=== PATIENT | female | born 1990 | race Caucasian/White ===

== ENCOUNTER → 2019-01-14 15:14 | Observation (INO) ==
[2019-01-14 13:31] LABS: Basophils # 0.1 K/mcL (0.0-0.2); Basophils % 0.6 %; Eosinophils # 0.1 K/mcL (0.0-0.6); Eosinophils % 0.7 %; Hematocrit 34.9 % (35.3-44.9); Hemoglobin 12.6 g/dL (11.5-15.4); Immature Granulocytes % 1.1 % (0-4); Lymphocytes # 1.5 K/mcL (0.6-4.6); Lymphocytes % 16.9 %; Mean Corpuscular HGB Conc 36.1 g/dL (31.6-35.5); Mean Corpuscular Hemoglobin 31.3 pg (28.0-33.3); Mean Corpuscular Volume 86.6 fL (83.0-100.0); Mean Platelet Volume 10.7 fL (9.4-12.4); Monocytes # 0.7 K/mcL (0.0-1.3); Monocytes % 7.5 %; Neutrophils # 6.5 K/mcL (1.6-8.9); Platelet Count 257 K/mcL (140-400); Red Blood Count 4.03 M/mcL (3.82-4.97); Red Cell Distribution Width 12.2 % (11.5-14.5); Segmented Neutrophils % 73.2 %; White Blood Count 8.9 K/mcL (4.3-11.1)
[2019-01-14 13:34] LABS: Bilirubin,Urine Small (Negative); Blood,Urine Negative (Negative); Clarity,Urine Cloudy (Clear); Color,Urine Dark Yellow (Yellow); Glucose,Urine (UA) Normal (Normal); Ketones,Urine Negative (Negative); Leukocyte Esterase,Urine Moderate (Negative); Nitrite,Urine Negative (Negative); Protein,Urine Trace mg/dL (Neg-Trace); Specific Gravity,Urine > 1.030 (1.010-1.025); Urobilinogen,Urine Normal (Normal)
[2019-01-14 13:35] LABS: Amphetamine Screen,Urine Negative ng/mL (Cutoff=1000); Barbiturate Screen,Urine Negative ng/mL (Cutoff=200); Benzodiazepines Screen,Urine Negative ng/mL (Cutoff=200); Cannabinoid Screen,Urine Negative ng/mL (Cutoff = 50); Cocaine Screen,Urine Negative ng/mL (Cutoff= 300); Creatinine,Urine 280 mg/dL; Opiate Screen,Urine Negative ng/mL (Cutoff=300); Phencyclidine Screen,Urine Negative ng/mL (Cutoff=25); Protein/Creatinine Ratio,Urine 0.14 mg/mg (0.00-0.20)
[2019-01-14 13:38] LABS: Bacteria,Urine Moderate per hpf (None-Few); Hyaline Casts,Urine Few per lpf (None-Few); RBC,Urine 0-3 per hpf (0-3); Squamous Epithelial Cell,Urine Many per lpf (None-Few); WBC,Urine 15-30 per hpf (0-3)
[2019-01-14 13:45] LABS: Alanine Aminotransferase 16 Units/L (7-52); Aspartate Amino Transferase 16 Units/L (13-39); BUN/Creatinine Ratio 16 (6-26); Blood Urea Nitrogen 8 mg/dL (6-20); Lactate Dehydrogenase 118 Units/L (140-271); Uric Acid 4.2 mg/dL (2.3-7.6); eGFR For African Americans > 60 (> 60); eGFR For Non-African Americans > 60 (> 60)
[2019-01-14 14:01] LABS: Calcium Oxalate Crystals,Urine Present
== END | disposition home or self-care (01) ==
LOC: 1NENULAB
PROVIDERS: ADMIT Advanced Practice Midwife; ATTEND Advanced Practice Midwife

== ENCOUNTER → 2019-02-27 19:55 | Observation (INO) ==
[2019-02-27 18:49] LABS: Bilirubin,Urine Negative (Negative); Blood,Urine Negative (Negative); Clarity,Urine Cloudy (Clear); Color,Urine Yellow (Yellow); Glucose,Urine (UA) Normal (Normal); Ketones,Urine Negative (Negative); Leukocyte Esterase,Urine Trace (Negative); Nitrite,Urine Negative (Negative); Protein,Urine Negative (Neg-Trace); Specific Gravity,Urine 1.018 (1.010-1.025); Urobilinogen,Urine Normal (Normal)
[2019-02-27 18:51] LABS: Hyaline Casts,Urine None Seen per lpf (None-Few); Squamous Epithelial Cell,Urine Many per lpf (None-Few); WBC,Urine 0-3 per hpf (0-3)
[2019-02-27 19:02] LABS: Bacteria,Urine Moderate per hpf (None-Few); Mucus,Urine Many per lpf (Few)
[2019-02-27 19:08] LABS: Amphetamine Screen,Urine Negative ng/mL (Cutoff=1000); Barbiturate Screen,Urine Negative ng/mL (Cutoff=200); Benzodiazepines Screen,Urine Negative ng/mL (Cutoff=200); Cannabinoid Screen,Urine Negative ng/mL (Cutoff = 50); Cocaine Screen,Urine Negative ng/mL (Cutoff= 300); Opiate Screen,Urine Negative ng/mL (Cutoff=300); Phencyclidine Screen,Urine Negative ng/mL (Cutoff=25)
== END | disposition home or self-care (01) ==
LOC: 1NENULAB
PROVIDERS: ADMIT Advanced Practice Midwife; ATTEND Advanced Practice Midwife

== ENCOUNTER → 2019-03-21 21:04 | Observation (INO) ==
[2019-03-21 20:47] LABS: Bilirubin,Urine Negative (Negative); Blood,Urine Negative (Negative); Clarity,Urine Clear (Clear); Color,Urine Yellow (Yellow); Glucose,Urine (UA) Normal (Normal); Ketones,Urine Negative (Negative); Leukocyte Esterase,Urine Small (Negative); Nitrite,Urine Negative (Negative); Protein,Urine Negative (Neg-Trace); Specific Gravity,Urine 1.008 (1.010-1.025); Urobilinogen,Urine Normal (Normal)
[2019-03-21 20:49] LABS: Bacteria,Urine Few per hpf (None-Few); Hyaline Casts,Urine None Seen per lpf (None-Few); RBC,Urine 0-3 per hpf (0-3); Squamous Epithelial Cell,Urine Many per lpf (None-Few); WBC,Urine 0-3 per hpf (0-3)
[~2019-03-21 21:04] MED LIST: FLU Vac QV 19-20 (6Month+)/PF 0.5 ML SYRINGE IM ONE
[2019-03-21 21:09] LABS: Amphetamine Screen,Urine Negative ng/mL (Cutoff=1000); Barbiturate Screen,Urine Negative ng/mL (Cutoff=200); Benzodiazepines Screen,Urine Negative ng/mL (Cutoff=200); Cannabinoid Screen,Urine Negative ng/mL (Cutoff = 50); Cocaine Screen,Urine Negative ng/mL (Cutoff= 300); Opiate Screen,Urine Negative ng/mL (Cutoff=300); Phencyclidine Screen,Urine Negative ng/mL (Cutoff=25)
[2019-03-21 21:48] LABS: Candida DNA DETECTED (Not Detect); Gardnerella DNA Not Detected (Not Detect); Trichomonas DNA Not Detected (Not Detect)
== END | disposition home or self-care (01) ==
LOC: 1NENULAB
PROVIDERS: ADMIT Advanced Practice Midwife; ATTEND Advanced Practice Midwife

== ENCOUNTER 2019-04-13 21:11 | Observation (INO) ==
[2019-04-13 19:37] LABS: Basophils # 0.1 K/mcL (0.0-0.2); Basophils % 0.5 %; Eosinophils # 0.1 K/mcL (0.0-0.6); Eosinophils % 0.7 %; Immature Granulocytes % 0.8 % (0-4); Lymphocytes # 1.7 K/mcL (0.6-4.6); Lymphocytes % 18.4 %; Mean Corpuscular HGB Conc 34.3 g/dL (31.6-35.5); Mean Corpuscular Hemoglobin 29.6 pg (28.0-33.3); Mean Corpuscular Volume 86.2 fL (83.0-100.0); Mean Platelet Volume 10.7 fL (9.4-12.4); Monocytes % 10.7 %; Neutrophils # 6.4 K/mcL (1.6-8.9); Platelet Count 283 K/mcL (140-400); Red Blood Count 4.06 M/mcL (3.82-4.97); Red Cell Distribution Width 11.7 % (11.5-14.5); Segmented Neutrophils % 68.9 %; White Blood Count 9.2 K/mcL (4.3-11.1)
[2019-04-13 19:57] LABS: Alanine Aminotransferase 14 Units/L (7-52); Albumin 3.2 g/dL (3.5-5.7); Albumin/Globulin Ratio 1.2 (1.1-2.2); Alkaline Phosphatase 99 Units/L (34-104); Aspartate Amino Transferase 15 Units/L (13-39); BUN/Creatinine Ratio 16 (6-26); Bilirubin,Total 0.3 mg/dL (0.3-1.0); Blood Urea Nitrogen 8 mg/dL (6-20); Calcium 8.7 mg/dL (8.6-10.3); Carbon Dioxide 19 mEq/L (23-29); Chloride 105 mEq/L (98-107); Globulin 2.7 g/dL (2.4-3.5); Glucose 86 mg/dL (70-105); Magnesium 1.6 mg/dL (1.6-2.6); Osmolality,Calculated 276 (280-300); Potassium 4.2 mEq/L (3.5-5.1); Sodium 134 mEq/L (136-145); Total Protein 5.9 g/dL (6.4-8.9); eGFR For African Americans > 60 (> 60); eGFR For Non-African Americans > 60 (> 60)
[2019-04-13 20:12] LABS: Amphetamine Screen,Urine Negative ng/mL (Cutoff=1000); Barbiturate Screen,Urine Negative ng/mL (Cutoff=200); Benzodiazepines Screen,Urine Negative ng/mL (Cutoff=200); Cannabinoid Screen,Urine Negative ng/mL (Cutoff = 50); Cocaine Screen,Urine Negative ng/mL (Cutoff= 300); Opiate Screen,Urine Negative ng/mL (Cutoff=300); Phencyclidine Screen,Urine Negative ng/mL (Cutoff=25)
[~2019-04-13 21:11] MED LIST changes: -FLU Vac QV 19-20 (6Month+)/PF 0.5 ML SYRINGE IM ONE; +Ringers Solution, Lactated 1,000 ML IVC ONE; +Ringers Solution, Lactated 1,000 ML IVC SCH; +Ringers Solution, Lactated 1,000 ML ONE
[2019-04-13 22:41] LABS: Bilirubin,Urine Negative (Negative); Blood,Urine Negative (Negative); Clarity,Urine Clear (Clear); Color,Urine Yellow (Yellow); Glucose,Urine (UA) Normal (Normal); Ketones,Urine Negative (Negative); Leukocyte Esterase,Urine Negative (Negative); Nitrite,Urine Negative (Negative); Protein,Urine Negative (Neg-Trace); Specific Gravity,Urine 1.005 (1.010-1.025); Urobilinogen,Urine Normal (Normal)
[2019-04-14] MEDS: Acetaminophen 325 MG TABLET PO PRN ×2 (04:04→11:52)
[2019-04-14] MEDS: Ringers Solution, Lactated 1,000 ML IVC SCH ×2 (08:26→08:41)
[2019-04-14 12:32] VITALS: BP 116/81
== END 2019-04-14 13:45 | disposition home or self-care (01) ==
LOC: 1NENULAB → 1NENUOBS 21:11
PROVIDERS: ADMIT Advanced Practice Midwife; ATTEND Advanced Practice Midwife

== ENCOUNTER → 2019-04-25 20:40 | Observation (INO) ==
[2019-04-25 18:33] LABS: Protein/Creatinine Ratio,Urine 0.14 mg/mg (0.00-0.20)
[2019-04-25 18:40] LABS: Bilirubin,Urine Negative (Negative); Blood,Urine Negative (Negative); Clarity,Urine Cloudy (Clear); Color,Urine Yellow (Yellow); Glucose,Urine (UA) Normal (Normal); Ketones,Urine Negative (Negative); Leukocyte Esterase,Urine Negative (Negative); Nitrite,Urine Negative (Negative); PH,Urine 6.5 pH Units (5.0-8.0); Protein,Urine Negative (Neg-Trace); Specific Gravity,Urine 1.026 (1.010-1.025); Urobilinogen,Urine Normal (Normal)
[2019-04-25 18:42] LABS: Squamous Epithelial Cell,Urine Many per lpf (None-Few)
[2019-04-25 18:55] LABS: Bacteria,Urine Moderate per hpf (None-Few); Calcium Oxalate Crystals,Urine Present; RBC,Urine 0-3 per hpf (0-3)
[2019-04-25 19:17] LABS: Basophils # 0.1 K/mcL (0.0-0.2); Basophils % 0.5 %; Eosinophils # 0.1 K/mcL (0.0-0.6); Eosinophils % 0.8 %; Hematocrit 34.5 % (35.3-44.9); Hemoglobin 11.7 g/dL (11.5-15.4); Lymphocytes # 1.4 K/mcL (0.6-4.6); Lymphocytes % 15.4 %; Mean Corpuscular HGB Conc 33.9 g/dL (31.6-35.5); Mean Corpuscular Hemoglobin 29.4 pg (28.0-33.3); Mean Corpuscular Volume 86.7 fL (83.0-100.0); Mean Platelet Volume 10.5 fL (9.4-12.4); Monocytes # 1.1 K/mcL (0.0-1.3); Monocytes % 12.2 %; Neutrophils # 6.5 K/mcL (1.6-8.9); Platelet Count 273 K/mcL (140-400); Red Blood Count 3.98 M/mcL (3.82-4.97); Red Cell Distribution Width 11.9 % (11.5-14.5); Segmented Neutrophils % 70.1 %; White Blood Count 9.2 K/mcL (4.3-11.1)
[2019-04-25 19:36] LABS: Alanine Aminotransferase 12 Units/L (7-52); Aspartate Amino Transferase 15 Units/L (13-39); BUN/Creatinine Ratio 17 (6-26); Blood Urea Nitrogen 7 mg/dL (6-20); Lactate Dehydrogenase 118 Units/L (140-271); Uric Acid 3.6 mg/dL (2.3-7.6); eGFR For African Americans > 60 (> 60); eGFR For Non-African Americans > 60 (> 60)
== END | disposition home or self-care (01) ==
LOC: 1NENULAB
PROVIDERS: ADMIT Registered Nurse; ATTEND Registered Nurse

== ENCOUNTER → 2019-04-30 13:40 | Observation (INO) ==
[~2019-04-30 13:40] MED LIST changes: +Ondansetron ODT 4 MG TAB.RAPDIS SL PRN; -Ringers Solution, Lactated 1,000 ML IVC ONE; -Ringers Solution, Lactated 1,000 ML IVC SCH; -Ringers Solution, Lactated 1,000 ML ONE
== END | disposition home or self-care (01) ==
LOC: 1NENULAB
PROVIDERS: ADMIT Advanced Practice Midwife; ATTEND Advanced Practice Midwife

== ENCOUNTER → 2019-05-10 19:18 | Observation (INO) ==
[2019-05-10 17:40] LABS: Basophils % 0.3 %; Eosinophils % 0.4 %; Hematocrit 35.4 % (35.3-44.9); Hemoglobin 11.7 g/dL (11.5-15.4); Immature Granulocytes % 0.5 % (0-4); Lymphocytes # 1.9 K/mcL (0.6-4.6); Lymphocytes % 19.6 %; Mean Corpuscular HGB Conc 33.1 g/dL (31.6-35.5); Mean Corpuscular Hemoglobin 28.1 pg (28.0-33.3); Mean Corpuscular Volume 85.1 fL (83.0-100.0); Mean Platelet Volume 11.3 fL (9.4-12.4); Monocytes # 1.2 K/mcL (0.0-1.3); Monocytes % 11.6 %; Neutrophils # 6.7 K/mcL (1.6-8.9); Platelet Count 259 K/mcL (140-400); Red Blood Count 4.16 M/mcL (3.82-4.97); Red Cell Distribution Width 12.3 % (11.5-14.5); Segmented Neutrophils % 67.6 %; White Blood Count 9.9 K/mcL (4.3-11.1)
[2019-05-10 17:48] LABS: Protein/Creatinine Ratio,Urine 0.18 mg/mg (0.00-0.20)
[2019-05-10 18:03] LABS: Alanine Aminotransferase 16 Units/L (7-52); Aspartate Amino Transferase 16 Units/L (13-39); BUN/Creatinine Ratio 18 (6-26); Blood Urea Nitrogen 8 mg/dL (6-20); Lactate Dehydrogenase 120 Units/L (140-271); Uric Acid 4.1 mg/dL (2.3-7.6); eGFR For African Americans > 60 (> 60); eGFR For Non-African Americans > 60 (> 60)
[~2019-05-10 19:18] MED LIST changes: -Ondansetron ODT 4 MG TAB.RAPDIS SL PRN; +Prochlorperazine 10 MG/2 ML VIAL IVP PRN
== END | disposition home or self-care (01) ==
LOC: 1NENULAB
PROVIDERS: ADMIT Obstetrics & Gynecology; ATTEND Obstetrics & Gynecology

== ENCOUNTER → 2019-05-12 16:55 | Observation (INO) ==
[2019-05-12 14:42] LABS: Bilirubin,Urine Small (Negative); Blood,Urine Trace (Negative); Clarity,Urine Cloudy (Clear); Color,Urine Dark Yellow (Yellow); Glucose,Urine (UA) Normal (Normal); Ketones,Urine Negative (Negative); Leukocyte Esterase,Urine Trace (Negative); Nitrite,Urine Negative (Negative); Protein,Urine Negative (Neg-Trace); Specific Gravity,Urine 1.026 (1.010-1.025); Urobilinogen,Urine Normal (Normal)
[2019-05-12 14:45] LABS: Bacteria,Urine Few per hpf (None-Few); Hyaline Casts,Urine None Seen per lpf (None-Few); Squamous Epithelial Cell,Urine Many per lpf (None-Few)
[2019-05-12 14:56] LABS: Calcium Oxalate Crystals,Urine Present; RBC,Urine 0-3 per hpf (0-3)
[2019-05-12 16:26] LABS: Candida DNA Not Detected (Not Detect); Gardnerella DNA Not Detected (Not Detect); Trichomonas DNA Not Detected (Not Detect)
== END | disposition home or self-care (01) ==
LOC: 1NENULAB
PROVIDERS: ADMIT Advanced Practice Midwife; ATTEND Advanced Practice Midwife

== ENCOUNTER 2019-05-22 09:45 | Inpatient (IN) ==
[2019-05-22] MEDS ORDERED: Metoclopramide 10 MG/2 ML VIAL IVP PRN (10:47)
[2019-05-22] MEDS ORDERED: Ondansetron 4 MG/2 ML VIAL IVP PRN (10:47)
[2019-05-22] MEDS ORDERED: Famotidine 20 MG/2 ML VIAL IVP PRN (10:47)
[2019-05-22 11:09] LABS: Basophils % 0.3 %; Eosinophils % 0.7 %; Hematocrit 33.2 % (35.3-44.9); Hemoglobin 11.2 g/dL (11.5-15.4); Immature Granulocytes % 0.7 % (0-4); Lymphocytes % 17.1 %; Mean Corpuscular HGB Conc 33.7 g/dL (31.6-35.5); Mean Corpuscular Hemoglobin 28.6 pg (28.0-33.3); Mean Corpuscular Volume 84.7 fL (83.0-100.0); Mean Platelet Volume 11.6 fL (9.4-12.4); Monocytes # 0.9 K/mcL (0.0-1.3); Monocytes % 15.4 %; Neutrophils # 3.9 K/mcL (1.6-8.9); Platelet Count 225 K/mcL (140-400); Red Blood Count 3.92 M/mcL (3.82-4.97); Red Cell Distribution Width 12.7 % (11.5-14.5); Segmented Neutrophils % 65.8 %
[2019-05-22 11:12] LABS: Amphetamine Screen,Urine Negative ng/mL (Cutoff=1000); Barbiturate Screen,Urine Negative ng/mL (Cutoff=200); Benzodiazepines Screen,Urine Negative ng/mL (Cutoff=200); Cannabinoid Screen,Urine Negative ng/mL (Cutoff = 50); Cocaine Screen,Urine Negative ng/mL (Cutoff= 300); Opiate Screen,Urine Negative ng/mL (Cutoff=300); Phencyclidine Screen,Urine Negative ng/mL (Cutoff=25)
[2019-05-22] MEDS ORDERED: miSOPROStoL 25 MCG TABLET PO PRN (11:20)
[2019-05-22] MEDS: Ringers Solution, Lactated 1,000 ML IVC SCH ×2 (12:41→13:43)
[2019-05-22] MEDS ORDERED: EPHEDrine 50 MG/ML VIAL IVP PRN (12:47)
[2019-05-22] MEDS ORDERED: Bupivacaine-MPF 0.25% 10 ML VIAL EP ONE (12:47)
[2019-05-22] MEDS ORDERED: *HR* FentaNYL (PF) 100 MCG/2 ML VIAL EP ONE (12:47)
[2019-05-22] MEDS ORDERED: Epidural Premix (fent/bupiv) 110 ML EP SCH (13:00)
[2019-05-22] MEDS ORDERED: *HR* Phenylephrine 10 MG/ML VIAL ONE (13:46)
[2019-05-22] MEDS: Oxytocin 20 units/ LR 1000 mL 20 UNIT/1,000 ML BAG IVC SCH ×2 (18:05→20:51)
[2019-05-22] MEDS ORDERED: Oxytocin 20 units/ LR 1000 mL 20 UNIT/1,000 ML BAG IVC ONE (20:50)
[2019-05-22] MEDS ORDERED: Oxytocin 20 units/ LR 1000 mL 20 UNIT/1,000 ML BAG IVC SCH (20:50)
[2019-05-22] MEDS ORDERED: Measles/Mumps/Rubella Vacc 0.5 ML VIAL SQ PRN (20:50)
[2019-05-22] MEDS ORDERED: Acetaminophen 325 MG TABLET PO PRN (20:50)
[2019-05-22] MEDS ORDERED: cefTRIAXone 2,000 MG in Water for inj. (sterile) 20 ML IVP ONE (20:50)
[2019-05-22] MEDS ORDERED: Rho Immune Globulin 1,500 UNIT SYRINGE IM PRN (20:50)
[2019-05-22] MEDS ORDERED: MetroNIDAZOLE 500 MG/100 ML 500 MG/100 ML BAG IVPB ONE (22:00)
[2019-05-22] MEDS: Ibuprofen 600 MG TABLET PO PRN (22:41)
[2019-05-23 06:59] LABS: Hematocrit 31.8 % (35.3-44.9); Hemoglobin 10.5 g/dL (11.5-15.4); Immature Granulocytes % 0.8 % (0-4); Lymphocytes % 16.8 %; Mean Corpuscular Hemoglobin 28.3 pg (28.0-33.3); Mean Corpuscular Volume 85.7 fL (83.0-100.0); Mean Platelet Volume 11.6 fL (9.4-12.4); Monocytes % 12.2 %; Platelet Count 175 K/mcL (140-400); Red Blood Count 3.71 M/mcL (3.82-4.97); Red Cell Distribution Width 12.4 % (11.5-14.5); Segmented Neutrophils % 69.6 %
[2019-05-23 07:00] LABS: Basophils % 0.4 %; Eosinophils % 0.2 %; Lymphocytes # 1.7 K/mcL (0.6-4.6); Monocytes # 1.2 K/mcL (0.0-1.3); Neutrophils # 6.9 K/mcL (1.6-8.9)
[2019-05-23 07:36] LABS: White Blood Count 9.9 K/mcL (4.3-11.1)
[2019-05-23 07:46] VITALS: BP 104/66
[2019-05-23] MEDS: Ibuprofen 600 MG TABLET PO PRN ×2 (08:30→15:33)
[2019-05-23] MEDS ORDERED: Prenatal Vit/FA 1 EACH TABLET PO SCH (09:00)
== END 2019-05-23 19:36 | disposition home or self-care (01) ==
LOC: 1NENULAB 09:45 → 1NENUOBS 21:02
PROVIDERS: ADMIT Obstetrics & Gynecology; ATTEND Obstetrics & Gynecology

== ENCOUNTER 2020-08-07 08:58 | Observation (INO) ==
[2020-08-07 10:25] LABS: Bilirubin,Urine Negative (Negative); Blood,Urine Negative (Negative); Clarity,Urine Clear (Clear); Color,Urine Light-Yellow (Yellow); Glucose,Urine (UA) Normal (Normal); Ketones,Urine Trace mg/dL (Negative); Leukocyte Esterase,Urine Negative (Negative); Nitrite,Urine Negative (Negative); Protein,Urine Trace mg/dL (Neg-Trace); Specific Gravity,Urine 1.022 (1.010-1.025); Urobilinogen,Urine Normal (Normal)
== END 2020-08-07 11:00 | disposition home or self-care (01) ==
LOC: 1NENULAB
PROVIDERS: ADMIT Advanced Practice Midwife; ATTEND Advanced Practice Midwife

== ENCOUNTER → 2020-08-25 13:30 | Observation (INO) ==
[2020-08-25 12:54] LABS: Bilirubin,Urine Negative (Negative); Blood,Urine Negative (Negative); Clarity,Urine Clear (Clear); Color,Urine Colorless (Yellow); Glucose,Urine (UA) Normal (Normal); Ketones,Urine Negative (Negative); Leukocyte Esterase,Urine Negative (Negative); Nitrite,Urine Negative (Negative); PH,Urine 6.5 pH Units (5.0-8.0); Protein,Urine Negative (Neg-Trace); Specific Gravity,Urine 1.007 (1.010-1.025); Urobilinogen,Urine Normal (Normal)
[2020-08-25 15:36] LABS: Candida DNA DETECTED (Not Detect); Gardnerella DNA Not Detected (Not Detect); Trichomonas DNA Not Detected (Not Detect)
== END | disposition home or self-care (01) ==
LOC: 1NENULAB
PROVIDERS: ADMIT Obstetrics & Gynecology; ATTEND Obstetrics & Gynecology

== ENCOUNTER 2020-10-10 12:00 | Inpatient (IN) ==
[2020-10-10] MEDS ORDERED: *HR* Nalbuphine 10 MG/ML AMPUL IV PRN (16:59)
[2020-10-10] MEDS ORDERED: Metoclopramide 10 MG/2 ML VIAL IVP PRN (16:59)
[2020-10-10] MEDS ORDERED: Azithromycin 500 MG in 0.9 % Sodium Chloride 250 ML IVPB PRN (16:59)
[2020-10-10] MEDS ORDERED: Naloxone 0.4 MG/ML INJ IVP PRN (16:59)
[2020-10-10] MEDS ORDERED: Lidocaine 1% 20 ML MDV INFILT PRN (16:59)
[2020-10-10] MEDS ORDERED: Ondansetron 4 MG/2 ML VIAL IVP PRN (16:59)
[2020-10-10] MEDS ORDERED: Famotidine 20 MG/2 ML VIAL IVP PRN (16:59)
[2020-10-10] MEDS ORDERED: Acetaminophen 325 MG TABLET PO ONE (17:02)
[2020-10-10] MEDS ORDERED: Penicillin G Potassium 5,000,000 UNIT in 0.9 % Sodium Chloride Mini Bag 100 ML IVPB ONE (17:03)
[2020-10-10] MEDS ORDERED: Oxytocin 20 units/ LR 1000 mL 20 UNIT/1,000 ML BAG IVC SCH (17:15)
[2020-10-10] MEDS ORDERED: Ringers Solution, Lactated 1,000 ML ONE ×3 (17:49→23:37)
[2020-10-10 18:44] LABS: Basophils # 0.1 K/mcL (0.0-0.2); Basophils % 0.6 %; Eosinophils % 0.5 %; Hematocrit 34.6 % (35.3-44.9); Hemoglobin 11.4 g/dL (11.5-15.4); Immature Granulocytes % 0.5 % (0-4); Lymphocytes # 2.3 K/mcL (0.6-4.6); Lymphocytes % 28.4 %; Mean Corpuscular HGB Conc 32.9 g/dL (31.6-35.5); Mean Corpuscular Hemoglobin 28.1 pg (28.0-33.3); Mean Corpuscular Volume 85.2 fL (83.0-100.0); Mean Platelet Volume 11.4 fL (9.4-12.4); Monocytes # 0.8 K/mcL (0.0-1.3); Monocytes % 10.4 %; Neutrophils # 4.8 K/mcL (1.6-8.9); Platelet Count 250 K/mcL (140-400); Red Blood Count 4.06 M/mcL (3.82-4.97); Red Cell Distribution Width 12.9 % (11.5-14.5); Segmented Neutrophils % 59.6 %; White Blood Count 8.1 K/mcL (4.3-11.1)
[2020-10-10 18:53] LABS: Amphetamine Screen,Urine Negative ng/mL (Cutoff=1000); Barbiturate Screen,Urine Negative ng/mL (Cutoff=200); Benzodiazepines Screen,Urine Negative ng/mL (Cutoff=200); Cannabinoid Screen,Urine Negative ng/mL (Cutoff = 50); Cocaine Screen,Urine Negative ng/mL (Cutoff= 300); Opiate Screen,Urine Negative ng/mL (Cutoff=300); Phencyclidine Screen,Urine Negative ng/mL (Cutoff=25)
[2020-10-10] MEDS ORDERED: EPHEDrine 50 MG/ML VIAL IVP PRN (21:49)
[2020-10-10] MEDS ORDERED: Epidural Premix (fent/bupiv) 110 ML EP SCH (22:00)
[2020-10-10] MEDS: Penicillin G Potassium 2,500,000 UNIT in 0.9 % Sodium Chloride 100 ML IVPB SCH (22:23)
[2020-10-11] MEDS: Penicillin G Potassium 2,500,000 UNIT in 0.9 % Sodium Chloride 100 ML IVPB SCH (01:51)
[2020-10-11] MEDS ORDERED: Ringers Solution, Lactated 1,000 ML ONE (02:29)
[2020-10-11] MEDS ORDERED: Benzocaine/Menthol 56 GM AEROSOL SPRAY TP PRN (05:21)
[2020-10-11] MEDS ORDERED: Oxytocin 20 units/ LR 1000 mL 20 UNIT/1,000 ML BAG IVC ONE (05:21)
[2020-10-11] MEDS ORDERED: Oxytocin 20 units/ LR 1000 mL 20 UNIT/1,000 ML BAG IVC SCH (05:21)
[2020-10-11] MEDS ORDERED: Lanolin 7 G OINT...G. TP PRN (05:21)
[2020-10-11] MEDS ORDERED: Rho Immune Globulin 1,500 UNIT SYRINGE IM PRN (05:21)
[2020-10-11] MEDS ORDERED: Measles/Mumps/Rubella Vacc 0.5 ML VIAL SQ PRN (05:21)
[2020-10-11] MEDS: Acetaminophen 325 MG TABLET PO SCH ×3 (05:42→17:58)
[2020-10-11] MEDS: Ibuprofen 600 MG TABLET PO SCH ×3 (05:42→17:57)
[2020-10-11] MEDS: Prenatal Vit/FA 1 EACH TABLET PO SCH (08:33)
[2020-10-11] MEDS ORDERED: NON-FORMULARY MEDICATION 1 EACH EACH (Prenatal Vitamin Tablet 1 TAB) PO SCH (09:00)
[2020-10-11 20:21] VITALS: PULSE 79
[2020-10-12] MEDS: Ibuprofen 600 MG TABLET PO SCH ×2 (00:22→07:21)
[2020-10-12] MEDS: Acetaminophen 325 MG TABLET PO SCH (05:33)
[2020-10-12 05:43] LABS: Basophils # 0.1 K/mcL (0.0-0.2); Basophils % 0.6 %; Eosinophils # 0.1 K/mcL (0.0-0.6); Eosinophils % 1.4 %; Hematocrit 30.4 % (35.3-44.9); Hemoglobin 10.1 g/dL (11.5-15.4); Immature Granulocytes % 0.8 % (0-4); Lymphocytes # 2.8 K/mcL (0.6-4.6); Lymphocytes % 31.4 %; Mean Corpuscular HGB Conc 33.2 g/dL (31.6-35.5); Mean Corpuscular Hemoglobin 28.9 pg (28.0-33.3); Mean Corpuscular Volume 87.1 fL (83.0-100.0); Monocytes # 0.8 K/mcL (0.0-1.3); Monocytes % 8.8 %; Platelet Count 203 K/mcL (140-400); Red Blood Count 3.49 M/mcL (3.82-4.97); Red Cell Distribution Width 13.2 % (11.5-14.5); White Blood Count 8.8 K/mcL (4.3-11.1)
[2020-10-12] MEDS: Prenatal Vit/FA 1 EACH TABLET PO SCH (07:21)
[2020-10-12 08:05] VITALS: BP 113/82; TEMP 98; O2SAT 98
== END 2020-10-12 10:33 | disposition home or self-care (01) | DRG 560 ==
LOC: 1NENULAB 15:35 → 1NENUOBS 10-11 05:07
PROVIDERS: ADMIT Obstetrics & Gynecology; ATTEND Obstetrics & Gynecology